=== PATIENT | female | born 1985 | race Caucasian/White ===

== ENCOUNTER 2018-04-25 03:27 | Emergency (ER) | payer MEDICAID ==
[~2018-04-25] VITALS: Ht 160 cm; Wt 86.4 kg
[2018-04-25 03:36] VITALS: Ht 160 cm; Wt 86.4 kg
[2018-04-25 04:49] LABS: APPEARANCE HAZY (CLEAR); BILIRUBIN NEGATIVE (NEGATIVE); COLOR YELLOW (YELLOW); GLUCOSE NEGATIVE (NEGATIVE); KETONE NEGATIVE (NEGATIVE); NITRITE NEGATIVE (NEGATIVE); PROTEIN TRACE mg/dL (NEGATIVE); UROBILINOGEN NORMAL (NORMAL)
[2018-04-25 04:50] LABS: BACTERIA FEW /hpf (NONE SEEN); EPITHELIAL CELLS 0-5 /hpf (0-5); RED CELLS - URINE 0-5 /hpf (0-5); WHITE CELLS - URINE 0-5 /hpf (0-5)
[2018-04-25] MEDS ORDERED: FLAGYL500 MG PO (05:34)
[2018-04-25 05:43] VITALS: BP 127/79
== END 2018-04-25 05:43 | disposition home or self-care (01) ==
LOC: D.ER 03:27
PROVIDERS: Family Medicine
DX: Z20.2 Contact with and (suspected) exposure to infections with a predominantly sexual mode of transmission (principal); F17.200 Nicotine dependence, unspecified, uncomplicated

== ENCOUNTER 2019-08-09 01:51 | Emergency (ER) | payer SELFPAY ==
[~2019-08-09] VITALS: Ht 160 cm; Wt 79.5 kg
[~2019-08-09 01:51] MED LIST: FLAGYL500 MG PO
[2019-08-09 02:05] VITALS: Ht 160 cm; Wt 79.5 kg
[2019-08-09] MEDS ORDERED: HYDROCODON-ACE1 EAC2 PO (03:59)
[2019-08-09] MEDS ORDERED: KEFLEX500 MG PO (03:59)
[2019-08-09 04:35] VITALS: BP 125/78
== END 2019-08-09 04:48 | disposition home or self-care (01) ==
LOC: D.ER 01:51
DX: K02.9 Dental caries, unspecified (principal); K08.89 Other specified disorders of teeth and supporting structures

== ENCOUNTER 2020-10-12 20:38 | Emergency (ER) | payer OTHER ==
[~2020-10-12] VITALS: Ht 160 cm; Wt 86.4 kg
[~2020-10-12 20:38] MED LIST changes: +HYDROCODON-ACE1 EAC2 PO; +KEFLEX500 MG PO
[2020-10-12 20:46] VITALS: BP 112/74; Ht 160 cm; Wt 86.4 kg
[2020-10-12 21:21] LABS: BILIRUBIN NEGATIVE (NEGATIVE); KETONE NEGATIVE (NEGATIVE); NITRITE NEGATIVE (NEGATIVE); UROBILINOGEN NORMAL mg/dL (< 2)
[2020-10-12 21:22] LABS: HCG URINE NEGATIVE (NEGATIVE)
[2020-10-12 21:37] LABS: SARS-CoV-2 ANTIGEN NEGATIVE- SARS-COV-2 (NEGATIVE)
[2020-10-12] MEDS ORDERED: ZOFRAN ODT4 MG/UDTAB PO (21:49)
[2020-10-12] MEDS ORDERED: LEVSIN/ANASP0.125 MG PO (21:49)
== END 2020-10-12 22:19 | disposition home or self-care (01) ==
LOC: D.ER 20:38
PROVIDERS: Family Medicine
DX: R11.2 Nausea with vomiting, unspecified (principal); B34.9 Viral infection, unspecified